=== PATIENT | female | born 1980 | race Caucasian/White ===

== ENCOUNTER 2018-05-02 16:13 | Emergency (ER) | payer BC, OTHER ==
[~2018-05-02] VITALS: Ht 144.8 cm; Wt 91.3 kg
[2018-05-02 16:56] VITALS: BP 150/90
[2018-05-02] MEDS ORDERED: CYCL-259 PO (17:16)
[2018-05-02] MEDS ORDERED: KETOROLAC 30 MG/1 ML ONE (17:40)
[2018-05-02] MEDS ORDERED: METHOCARBAMOL 750 MG TABLET ONE (17:40)
[2018-05-02] MEDS ORDERED: KETOROLAC 30 MG/1 ML IM ONE (18:00)
[2018-05-02] MEDS ORDERED: METHOCARBAMOL 750 MG TABLET PO ONE (18:00)
== END 2018-05-02 18:33 | disposition home or self-care (01) ==
LOC: ED 18:17
DX: M54.5 Low back pain (principal)
CPT/HCPCS: 96372; 99283; J1885